=== PATIENT | male | born 1940 | race Caucasian/White ===

== ENCOUNTER → 2017-02-10 | Outpatient (CLI) | payer MEDICARE ==
[~2017-02-10] MED LIST: ALBU8.5H5 INH; ATOR-2 PO; BECL8.7A7 INH; BENA40TA2 PO; FURO80TA3 PO; LORA1TAB PO; METO-95 PO; NABU500T PO; POTA10TA11 PO; PREG75CA PO; TAMS0.4C2 PO; TRAM50TA2 PO; VARE1TAB21 PO; VERA240T86 PO
== END | disposition home or self-care (01) ==
LOC: CVU 11:39
PROVIDERS: ATTEND Internal Medicine Cardiovascular Disease
DX: I87.2 Venous insufficiency (chronic) (peripheral) (principal); L03.116 Cellulitis of left lower limb; L03.115 Cellulitis of right lower limb; I10 Essential (primary) hypertension; Z95.5 Presence of coronary angioplasty implant and graft
CPT/HCPCS: 93970

== ENCOUNTER 2019-04-11 10:16 | Observation (INO) | payer MEDICARE ==
[~2019-04-11] VITALS: Ht 167.6 cm; Wt 101.5 kg
[~2019-04-11 10:16] MED LIST changes: -BENA40TA2 PO; +BENA40TA3 PO; +VERA240T10 PO; -VERA240T86 PO
[2019-04-11] MEDS ORDERED: ASPI81TA45 PO (11:07)
[2019-04-11] MEDS ORDERED: AMLO-150 PO (11:07)
[2019-04-11] MEDS ORDERED: IBUP-1623 PO (11:07)
[2019-04-11] MEDS ORDERED: NITR0.4T28 SL (11:07)
[2019-04-11] MEDS ORDERED: ALLO300T PO (11:07)
[2019-04-11] MEDS ORDERED: BUPRENORPHINE PO (11:07)
[2019-04-11] MEDS ORDERED: FINA5TAB4 PO (11:07)
[2019-04-11] MEDS ORDERED: ISOS30TA8 PO (11:07)
[2019-04-11] MEDS ORDERED: HYDR-3342 PO ×2 (11:07→11:13)
[2019-04-11] MEDS ORDERED: METO-93 PO (11:07)
[2019-04-11] MEDS ORDERED: CHLO25TA PO (11:07)
[2019-04-11] MEDS ORDERED: SERT50TA28 PO (11:07)
[2019-04-11] MEDS ORDERED: UMEC1DIS INH (11:07)
[2019-04-11] MEDS ORDERED: COLC0.6C3 PO (11:07)
[2019-04-11] MEDS ORDERED: ZALE10CA PO (11:07)
[2019-04-11 11:22] VITALS: BP 153/67
[2019-04-11 11:51] LABS: BASOPHILS # (AUTO) 0.07 x10^3/uL (0-0.1); BASOPHILS % (AUTO) 1 % (0-1); EOSINOPHILS # (AUTO) 0.11 x10^3/uL (0-0.4); EOSINOPHILS % (AUTO) 1 % (1-7); LYMPHOCYTES # (AUTO) 1.43 x10^3/uL (1-3.4); LYMPHOCYTES % (AUTO) 19 % (22-44); MD NO; MEAN CORPUSCULAR HEMOGLOBIN 32.2 pg (27.5-34.5); MEAN CORPUSCULAR HGB CONC 32.8 g/dL (33.2-36.2); MEAN CORPUSCULAR VOLUME 98.2 fL (81-97); MEAN PLATELET VOLUME 7.9 fL (7.4-10.4); MONOCYTES # (AUTO) 0.49 x10^3/uL (0.2-0.8); MONOCYTES % (AUTO) 6 % (2-9); NEUTROPHILS # (AUTO) 5.54 x10^3/uL (1.8-6.8); NEUTROPHILS % (AUTO) 73 % (42-75); PLATELET COUNT 210 x10^3/uL (130-400); RED BLOOD COUNT 4.82 x10^6/uL (4.38-5.82); RED CELL DISTRIBUTION WIDTH 15.3 % (9.4-14.8)
[2019-04-11 12:10] LABS: CHLORIDE 114 mmol/L (98-107)
[2019-04-11 12:14] LABS: ANION GAP 5 mmol/L (5-15); CALCIUM 8.7 mg/dL (8.5-10.1)
[2019-04-11] MEDS ORDERED: MIDAZOLAM 1 MG/ML, 2ML ONE ×2 (13:00→13:49)
[2019-04-11] MEDS ORDERED: LIDOCAINE-MPF 1%, 5ML ONE (13:00)
[2019-04-11] MEDS ORDERED: VERAPAMIL 2.5 MG/ML, 2ML ONE (13:00)
[2019-04-11] MEDS ORDERED: HEPARIN 1,000 UNITS/ML, 10ML ONE (13:00)
[2019-04-11] MEDS ORDERED: FENTANYL PF 100 MCG/2ML ONE ×2 (13:00→13:45)
[2019-04-11] MEDS ORDERED: TICAGRELOR 90 MG TABLET ONE (13:35)
[2019-04-11] MEDS ORDERED: BIVALIRUDIN 250 MG ONE ×2 (13:35→14:07)
[2019-04-11] MEDS ORDERED: LIDOCAINE 1%, 20ML ONE (14:04)
[2019-04-11] MEDS ORDERED: LORazepam 0.5MG TABLET PO PRN (15:30)
[2019-04-11] MEDS ORDERED: COLCHICINE 0.6 MG CAPSULE PO PRN (15:30)
[2019-04-11] MEDS ORDERED: IBUPROFEN 200 MG TABLET PO PRN (15:30)
[2019-04-11] MEDS ORDERED: ZALEPLON 10 MG PO PRN (15:30)
[2019-04-11] MEDS ORDERED: BUPRENORPHINE PO PRN (15:30)
[2019-04-11 18:32] VITALS: BP 173/78
[2019-04-11] MEDS: POTASSIUM CHLORIDE 10 MEQ TABLET.ER PO SCH (20:51)
[2019-04-11] MEDS: BENAZEPRIL 20 MG TABLET PO SCH (20:52)
[2019-04-11] MEDS ORDERED: ATORVASTATIN 80 MG TABLET PO SCH (21:00)
[2019-04-12 01:33] VITALS: BP 167/63
[2019-04-12] MEDS: SODIUM CHLORIDE 0.9% 1,000 ML IV SCH ×2 (02:11→10:03)
[2019-04-12 07:29] VITALS: BP 177/68
[2019-04-12] MEDS: BENAZEPRIL 20 MG TABLET PO SCH (08:22)
[2019-04-12] MEDS: POTASSIUM CHLORIDE 10 MEQ TABLET.ER PO SCH (08:24)
[2019-04-12] MEDS ORDERED: METOPROLOL SUCCINATE 50 MG TAB.ER.24H PO SCH (09:00)
[2019-04-12] MEDS ORDERED: ASPIRIN 81 MG TABLET EC PO SCH (09:00)
[2019-04-12] MEDS ORDERED: AMLODIPINE 5 MG TABLET PO SCH (09:00)
[2019-04-12] MEDS ORDERED: (Umeclidinium Brm/Vilanterol Tr (Anoro Ellipta 62.5-25 Mcg Inh INH SCH (09:00)
[2019-04-12] MEDS ORDERED: TAMSULOSIN 0.4 MG CAP.ER.24H PO SCH (09:00)
[2019-04-12] MEDS ORDERED: CHLORTHALIDONE 25 MG TABLET PO SCH (09:00)
[2019-04-12] MEDS ORDERED: ISOSORBIDE MONONITRATE ER 30 MG TABLET PO SCH (09:00)
[2019-04-12] MEDS ORDERED: FINASTERIDE 5 MG TABLET PO SCH (09:00)
[2019-04-12] MEDS ORDERED: FUROSEMIDE 80 MG TABLET PO SCH (09:00)
[2019-04-12] MEDS ORDERED: SERTRALINE 50MG TABLET PO SCH (09:00)
[2019-04-12] MEDS ORDERED: CLOP75TA PO (09:28)
[2019-04-12] MEDS ORDERED: CLOPIDOGREL 75 MG TABLET PO SCH (09:30)
[2019-04-12 10:00] VITALS: BP 156/89
== END 2019-04-12 12:10 | disposition left against medical advice (07) ==
LOC: CACL 10:16 → 5SO 17:57 → CACL 23:28 → 5SO 23:28
PROVIDERS: ADMIT Internal Medicine Cardiovascular Disease; ATTEND Internal Medicine Cardiovascular Disease
DX: R07.9 Chest pain, unspecified (principal); I25.10 Atherosclerotic heart disease of native coronary artery without angina pectoris; I10 Essential (primary) hypertension; E78.00 Pure hypercholesterolemia, unspecified; J44.9 Chronic obstructive pulmonary disease, unspecified
CPT/HCPCS: 36415; 80048; 85025; 92920; 93458; 99156; 99157; C1725; C1760; C1769; C1887; C1894; G0378; J0583; J1644; J2250; J3010; J3490; J7030; Q9967